=== PATIENT | male | born 1990 | race Two or more races ===

== ENCOUNTER 2017-08-14 17:15 | Emergency (ER) | payer SELFPAY ==
[~2017-08-14] VITALS: Ht 175.3 cm; Wt 90.7 kg
[2017-08-14 20:33] LABS: Basophils # (auto) 0.1 uL; Basophils % (auto) 0.6 % (0.0-2.0); Eosinophils # (auto) 0 uL; Eosinophils % (auto) 0.2 % (0.0-7.0); Hematocrit 48.5 % (41.0-53.0); Hemoglobin 16.2 g/dL (13.5-17.5); Lymphocytes # (auto) 1.8 uL; Lymphocytes % (auto) 8.1 % (10.0-50.0); Mean Corpuscular Hgb Conc. 33.3 g/dL (32.0-36.0); Mean Corpuscular Volume 90.1 fL (80.0-100.0); Mean Platelet Volume 8.5 fL (6.9-10.8); Monocytes # (auto) 1.8 uL; Monocytes % (auto) 7.9 % (0.0-12.0); Neutrophils % (auto) 83.2 % (37.0-80.0); Platelet Count (auto) 301 10^3/uL (140-450); Red Cell Distribution Width 14.2 % (11.8-14.3); White Blood Cell 22.8 10^3/uL (4.4-10.8)
[2017-08-14 20:41] LABS: Urine Bilirubin Negative (Negative); Urine Blood Negative /uL (Negative); Urine Color Yellow (Yellow); Urine Glucose Normal (Normal); Urine Ketone 1+ (Negative); Urine Mucus MODERATE (None Seen); Urine Nitrite Negative (Negative); Urine RBC 1 /hpf (0 - 3); Urine Squamous Epithelial Cell FEW /hpf (<5)
[2017-08-14 20:54] LABS: Albumin 4.1 g/dL (3.4-5.0); Anion Gap 11 (5-15); BUN/Creatinine Ratio 11.6; Blood Urea Nitrogen 10 mg/dL (7-18); Calcium 8.8 mg/dL (8.5-10.1); Carbon Dioxide 23 mmol/L (21-32); Chloride 106 mmol/L (98-107); GFR African American 137 mL/min; GFR Non-African American 113 mL/min; Glucose 123 mg/dL (74-106); Potassium 4.3 mmol/L (3.5-5.1); Sodium 140 mmol/L (136-145)
[2017-08-14 20:59] LABS: Alkaline Phosphatase 119 U/L (45-117); Aspartate Aminotransferase 17 U/L (15-37); Bilirubin, Total 0.5 mg/dL (0.2-1.0)
[2017-08-14 22:33] VITALS: BP 142/86
[2017-08-14] MEDS ORDERED: LORazepam 0.5 MG TAB PO ONE (22:45)
== END 2017-08-15 00:02 | disposition home or self-care (01) ==
LOC: EDBD 17:15 → ER 17:24
DX: F14.10 Cocaine abuse, uncomplicated (principal)
CPT/HCPCS: 36415; 71010; 80053; 80307; 81001; 84484; 85025; 93005